=== PATIENT | female | born 1975 ===

== ENCOUNTER 2025-03-20 23:42 | Emergency (ER) | payer OTHER ==
[~2025-03-20] VITALS: Ht 165.1 cm; Wt 80.5 kg
[2025-03-21 01:47] VITALS: BP 142/76
== END 2025-03-21 01:26 | disposition home or self-care (01) ==
LOC: ED 23:42
DX: N63.14 Unspecified lump in the right breast, lower inner quadrant (principal); Z80.0 Family history of malignant neoplasm of digestive organs; Z80.41 Family history of malignant neoplasm of ovary
CPT/HCPCS: 99283

== ENCOUNTER 2025-04-16 09:20 | Emergency (ER) | payer OTHER ==
[~2025-04-16] VITALS: Ht 165.1 cm; Wt 79.5 kg
--- OUTSIDE RECORDS SUMMARY | 2025-04-16 09:27 | XMS ---
PreManage Notification: [employer] Hand Events No recent Security Events currently on file CRITERIA MET - [facility] - 2 Visits in 30 Days CARE PROVIDERS -, [facility] Dentist: [employer] [facility] [facility] PHONE: [phone] [facility] PRIMARY Clinic/Center: [facility] PHONE: [phone] Ranulfo has no Care Guidelines for this patient. EChristina VISIT COUNT (12 MO.) 2 [facility] TOTAL 2 NOTE: Visits indicate total known visits. ED/UCC VISIT TRACKING (12 MO.) 04/16/2025 09:[address] [facility] [place] TYPE: Emergency COMPLAINT: - ABDOMINAL PAIN 03/20/2025 23:43 [facility] TYPE: Emergency COMPLAINT: - SKIN PROBLEM DIAGNOSES: - Family history of malignant neoplasm of digestive organs - Family history of malignant neoplasm of ovary - Unspecified lump in the right breast, lower inner quadrant - Unspecified lump in unspecified breast INPATIENT VISIT TRACKING (12 MO.) No inpatient visits to display in this time frame [email or web address]
[2025-04-16 09:55] LABS: BASOPHILS 0.3 % (0.1-1.2); EOSINOPHILS 1.4 % (0.7-5.8); LYMPHOCYTES 14.3 % (19.3-51.7); MCH 30.7 PG (25.6-32.2); MCHC 33.6 g/dL (32.2-35.5); MCV 91.3 fL (79.4-94.8); MONOCYTES 9.5 % (4.7-12.5); NEUTROPHILS 74.3 % (34.0-71.1); RBC 4.24 M/uL (3.93-5.22)
[2025-04-16 10:10] LABS: ALT (SGPT) 15.0 U/L (14-59); AST (SGOT) 9.0 U/L (15-37); GLOMERULAR FILTRATION RATE,EST 107.0 mL/min (>60); PROTEIN, TOTAL 7.2 g/dL (6.4-8.2); UREA NITROGEN 16.0 mg/dL (7-18)
[2025-04-16 10:34] LABS: BLOOD/HGB, URINE MODERATE (Negative); KETONE, URINE TRACE (Negative); LEUK ESTERASE, URINE NEGATIVE (negative); NITRITE, URINE NEGATIVE (negative)
[2025-04-16 10:48] LABS: BACTERIA, URINE NONE SEEN /hpf (negative); CASTS, URINE NONE SEEN \\lpf; CRYSTALS, URINE NONE SEEN (0-1+); EPITHELIAL CELLS, URINE SQUAMOUS 1+ /lpf (0-1+); REFLEX CULTURE, URINE No (No)
[2025-04-16] MEDS ORDERED: AMOXICILLIN/CLAVULANATE K 875 MG TAB PO ONE (12:30)
[2025-04-16] MEDS ORDERED: FLUCONAZOLE150 MG PO (12:40)
[2025-04-16] MEDS ORDERED: PERCOCET 5-3251 EACH PO (12:40)
[2025-04-16] MEDS ORDERED: AMOX TR-K CLV1 EAC1 PO (12:40)
[2025-04-16 12:56] VITALS: BP 117/66
== END 2025-04-16 12:57 | disposition home or self-care (01) ==
LOC: ED 09:20
PROVIDERS: Emergency Medicine
DX: K57.32 Diverticulitis of large intestine without perforation or abscess without bleeding (principal); Z88.8 Allergy status to other drugs, medicaments and biological substances
CPT/HCPCS: 36415; 74177; 80053; 81001; 83690; 85025; 99284-25; Q9967